=== PATIENT | female | born 1985 | race Two or more races ===

== ENCOUNTER 2017-09-11 22:00 | Emergency (ER) | payer MEDICAID ==
[~2017-09-11] VITALS: Ht 157.5 cm; Wt 65.3 kg
[2017-09-12 02:47] VITALS: BP 132/84
[2017-09-12] MEDS ORDERED: diphenhdrAMINE HCL 25 MG CAP PO ONE (03:00)
[2017-09-12] MEDS ORDERED: DEXAMETHASONE SOD PHOS 10MG/1ML VIAL INJ IM ONE (03:00)
[2017-09-12] MEDS ORDERED: FAMOTIDINE 20 MG TAB PO ONE (03:00)
== END 2017-09-12 03:45 | disposition home or self-care (01) ==
LOC: ER 22:00
DX: T78.40XA Allergy, unspecified, initial encounter (principal); Z88.8 Allergy status to other drugs, medicaments and biological substances
CPT/HCPCS: 96372; 99283; J1100

== ENCOUNTER 2017-09-12 16:19 | Emergency (ER) | payer MEDICAID ==
[~2017-09-12] VITALS: Ht 160 cm; Wt 65.3 kg
[2017-09-12 16:45] VITALS: BP 147/84
[2017-09-12] MEDS ORDERED: methylPREDNISolone SOD SUCC 125 MG/2 ML VL IM ONE (17:30)
[2017-09-12] MEDS ORDERED: EPINEPHrine HCL 1 MG/1 ML AMP SC ONE (17:30)
== END 2017-09-12 18:08 | disposition home or self-care (01) ==
LOC: ER 16:30
DX: T78.49XD Other allergy, subsequent encounter (principal); Z88.8 Allergy status to other drugs, medicaments and biological substances; X58.XXXD Exposure to other specified factors, subsequent encounter
CPT/HCPCS: 96372; 99284; J0171; J2930

== ENCOUNTER 2020-05-23 20:12 | Emergency (ER) | payer MEDICAID ==
[~2020-05-23] VITALS: Ht 157.5 cm; Wt 68.9 kg
[2020-05-23 21:23] LABS: Basophils # (auto) 0 10 ^3/uL (0-0.2); Basophils % (auto) 0.3 % (0.0-2.0); Eosinophils # (auto) 0.1 10 ^3/uL (0-0.8); Eosinophils % (auto) 0.8 % (0.0-7.0); Hematocrit 38.4 % (36.0-46.0); Hemoglobin 13.1 g/dL (12.2-16.2); Lymphocytes # (auto) 2.1 10 ^3/uL (0.4-5.4); Lymphocytes % (auto) 24.7 % (10.0-50.0); Mean Corpuscular Hemoglobin 30.7 pg (28.0-32.0); Mean Corpuscular Hgb Conc. 34.2 g/dL (32.0-36.0); Mean Corpuscular Volume 89.8 fL (80.0-100.0); Monocytes # (auto) 0.5 10 ^3/uL (0-1.3); Monocytes % (auto) 6.3 % (0.0-12.0); Neutrophils # (auto) 5.8 10 ^3/uL (1.6-8.6); Neutrophils % (auto) 67.9 % (37.0-80.0); Nucleated Red Blood Cells % 0.1 %; Platelet Count (auto) 366 10^3/uL (140-450); Red Blood Cells 4.28 10^6/uL (4.0-5.20); Red Cell Distribution Width 13.5 % (11.8-14.3); White Blood Cell 8.5 10^3/uL (4.4-10.8)
[2020-05-23 21:25] LABS: Urine Bacteria NONE SEEN /hpf (None Seen); Urine Blood Negative /uL (Negative); Urine Specific Gravity 1.001 (1.001-1.035); Urine WBC <1 /hpf (0 - 5)
[2020-05-23 21:40] LABS: BUN/Creatinine Ratio 19.7; Calcium 9.5 mg/dL (8.5-10.1); Potassium 3.9 mmol/L (3.5-5.1)
[2020-05-23 21:51] LABS: Bilirubin, Total 0.2 mg/dL (0.2-1.0); Total Protein 8.6 g/dL (6.4-8.2)
[2020-05-24 00:29] VITALS: BP 108/73
== END 2020-05-24 00:30 | disposition home or self-care (01) ==
LOC: ER 20:14
DX: O20.0 Threatened abortion (principal); Z3A.01 Less than 8 weeks gestation of pregnancy; Z88.8 Allergy status to other drugs, medicaments and biological substances
CPT/HCPCS: 36415; 76801; 80053; 81001; 84702; 85025